=== PATIENT | male | born 2005 | race African-American/Black ===

== ENCOUNTER 2024-12-27 09:45 | Outpatient (RCR) | payer OTHER, SELFPAY ==
--- NOTE | 2024-12-12 14:26 | PT.OPEX ---
PT [place] Outpatient Eval PT [facility] Outpatient Eval Start: 12/12/24 10:00 Freq: Status: Active Protocol: Document 12/12/24 10:00 AUBREY (Rec: 12/12/24 14:23 [facility] [id number]) E-signed By Sugey Jaquez PT Physical Therapy Outpatient Evaluation Insurance Information Insurance Name Workman's Comp Insurance Information/Comments WORK COMP Medical Diagnosis LEFT SHOULDER RTC ARTHROPATHY Treating Diagnosis LEFT SHOULDER PAIN LEFT SHOULDER IMPINGEMENT Imaging Report Information N/A Referring MD ANGELES PAT, DO Subjective Subjective PATIENT REPORTS BLOCKING A WALKER WITH HIS SHOULDER/ARM FROM HITTING ANOTHER CLIENT AT THE [employer] HE WORKS FOR ON 09/28/24. HE TRIED TO LET HEAL ON IT'S OWN THINKING THAT THE PAIN WOULD GET BETTER BUT, ULTIMATELY, HE F/U WITH PHYSICIAN. SHE PRESCRIBED PO IBUPROFEN, INSTRUCTED HIM TO USE ICE AND RESTRICTED HIS LIFTING/PUSH/ PULL TO 50#. HE C/O LEFT UPPER ARM PAIN WHEN REACHING OUT TO SIDE APPROACHING AND >90 DEGREES W/O WEIGHT. HE REPORTS INTERMITTENTLY USING ICE AND IBUPROFEN NOTING A DECREASE IN PAIN WHEN DOES USE THEM. 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 Precautions Therapy Limitations/Systems Review Not Limited Objective Other/Pertinent Objective CERVICAL ROM : WNL SHOULDER AROM FLEX: WNL ABD:WNL *>90 IR:WNL ER: WNL NECK/SHOULDER MMT: SHRUG 5/5 FLEX 5/5 EXT 5/5 ABD 5-/5 * IR 5/5 ER 5/5 ELBOW:5/5 FLEX 5/5 EXT 5/5 SPECIAL TESTS: CERVICAL: SPURLING :UNREMARKABLE CERVICAL DISTRACTION: UNREMARKABLE NEURAL TENSION (MEDIAN/ULNAR/ RADIAL): NT BAKODY SIGN: NT CRLF: NT AJ: NT IMPINGEMENT: GREENE-MASSIEL: (+) NEER (+) CAR (-) PAINFUL ARC (+) TENDONITIS: SPEEDS (-) YERGASON'S (-) JOBES (EMPTYCAN) (+) FULL CAN (-) LIFT OFF (-) HORN BLOWER (+) DROP ARM (-) LABRAL TEAR/INSTABILITY/AC SCARF TEST (-) PAXIONO (-) APPREHENSION :(-) LUCERO'S : (-) JOINT MOBILITY/PALPATION : NORMAL ARTHROKINEMATICS, PAIN WITH PALPATION AT SUPRASPINATUS INSERTION/SUBDELTOID BURSA TX: SHOULDER SHRUG W/BKWD ROTATION X 15 PEC STRETCH 3 X 15SEC STDG TB ROW (BLUE) X 15 HOLD 3 SEC STDG TB ROW (BLUE) X 15 HOLD 3 SEC STDG TB ER (GREEN) X 15 SLOW AND STEADY Functional Test Performed & Score [id number] Assessment Assessment/Impression PATIENT IS A 19 YO REFERRED BY ANGELES PAT TO EVAL AND TREAT LEFT SHOULDER ARTHROPATHY. PATIENT DEMONSTRATES SIGNS AND SYMPTOMS CONSISTENT WITH SHOULDER IMPINGEMENT SYNDROME/ SUBDELTOID BURSITIS CONTRIBUTING TO THEIR FUNCTIONAL IMPAIRMENTS OF PAIN WITH LIFTING/REACHING OUT TO SIDE AND >90 DEGREES. PATIENT HAS NOTABLE OBJECTIVE FINDING INCLUDING (+) GREENE MASSIEL , NEERS, EMPTY CAN AND PAINFUL ARC WHICH ALL ARE CONTRIBUTING TO THE CLINICAL IMPRESSION. PATIENT IS A GOOD CANDIDATE FOR SKILLED PHYSICAL THERAPY TO ADDRESS AFOREMENTIONED DEFICITS ABOVE IN ORDER TO RETURN TO ASYMPTOMATIC STATUS AND RETURN TO UNRESTRICTED MVMTS IN ORDER TO RETURN TO FULL DUTY A PASTER OPERATOR W/O RESTRICTIONS . INTERVENTION IS NECESSARY BY WAY OF THERAPEUTIC EXERCISES, MANUAL THERAPY, NEUROMUSCULAR EDUCATION, AND STABILIZATION/ PROPRIOCEPTION. PLEASE REFER TO APPROPRIATE SECTION WITHIN THIS EVALUATION FOR COMPLETE LIST OF GOALS AND PLAN OF CARE . DISCHARGE PLAN AND CRITERIA IS FOR PATIENT TO ACHIEVE THE GOALS LISTED BELOW OR UNTIL MAX POTENTIAL MET. PATIENT VERBALIZED UNDERSTANDING AND AGREEABLE TO POC, FREQ, AND GOALS ESTABLISHED. Primary Functional Limitations LIFTING/REACHING AWAY FROM BODY, OVERHEAD, AND CARRYING Plan of Care Rehabilitation Potential Good Physical Therapy Goals IN 6-8 VISITS: 1. DECREASE SHOULDER PAIN TO < /2-3/10 WITH DAILY ACTIVITIES AND WITH THE PROGRESSION OF HIS/HER HEP OVER THE NEXT 4 WEEKS. 2. DEMONSTRATE PAIN FREE AROM OVER THE NEXT 4-6 WEEKS DURING DAILY ACTIVITIES WITHOUT FLARE UPS OF SYMPTOMS. 3. PATIENT WILL VERBALIZED UNDERSTANDING OF POSTURING AND BODY MECHANICS IT RELATES TO DECREASING STRESS, IMPROVED SHOULDER MECHANICS, AND DECREASED SYMPTOMS. 4.PATIENT WILL DEMONSTRATES IMPROVED STRENGTH TO FACILITATE RETURN TO DAILY ACTIVITIES WITH LESS SYMPTOMS AND DECREASED OPPORTUNITIES FOR FLARE UP OF PAIN 5. PATIENT WILL BE INDEPENDENT WITH HIS HEP WITHIN THE NEXT 6-8 WEEKS FOR PROGRESSION TWD ABOVE MENTION GOALS, CONTINUED MGMT OF SYMPTOMS, AND ONGOING SELF IMPROVEMENTS IN POSTURING/STRENGTH/ STABILIZATION. Coordination/Communication With Referral Source,Compliance Investigator ( [facility]) Treatment Plan/Direct Interventions Ice/Cold/Vasopneumatic,Joint Mobilization,Manual Therapy, Neuromuscular Re-ed,Self-Care/ Home Management,Therapeutic Activities,Therapeutic Exercises Frequency/Duration 1X/WK Patient Will Be Discharged From Therapy Completion of LTG(s), Independently Progressing Evaluation Billing Untimed Code Treatment Minutes 20 PT Eval No Charge No Complexity Low Certification Information Provider Signature Required Yes Provider Signature Shows Agreement With POC & Medical Necessity Physician NPI Number Write NPI# Here Physician Comment/Change : Physician Signature & Date Requested Please Sign/Date Here
== END 2025-02-08 10:01 | disposition home or self-care (01) ==
PROVIDERS: Visit Provider Family Medicine
DX: S46.002A Unspecified injury of muscle(s) and tendon(s) of the rotator cuff of left shoulder, initial encounter (principal); M25.512 Pain in left shoulder; M75.42 Impingement syndrome of left shoulder; Z51.89 Encounter for other specified aftercare
CPT/HCPCS: 97110; 97161

== ENCOUNTER 2025-03-22 09:24 | Outpatient (CLI) | payer OTHER, SELFPAY ==
--- NOTE | 2025-03-22 09:15 | CRLHL7_ITS ---
For Patients: As a result of the Century Cures Act, medical imaging exams and procedure reports are released immediately into your electronic medical record. You may view this report before your referring provider. If you have questions, please contact your health care provider. Indication: Left shoulder pain Comparison: 03/08/2025 Procedure : Informed consent was obtained. The site was marked. Time-out was performed. The skin of the left shoulder was cleansed with ChloraPrep. A sterile drape was placed. 8 cc of 1 percent lidocaine was administered for superficial anesthesia. Subsequently a 22 gauge spinal needle was introduced into the left shoulder joint under intermittent fluoroscopic guidance. Injection of 2 cc nonionic Omnipaque 240 contrast confirmed intra-articular location. Subsequently 11 cc of dilute gadolinium were injected. The needle was removed and hemostasis achieved with direct pressure. A dressing was placed. The patient tolerated the procedure well without immediate complication and was immediately sent to MRI for imaging. Total fluoroscopy time 18 seconds. Impression: Successful fluoroscopically guided left shoulder arthrogram for MRI. Dictated by Sergio Roque MD @ 03/22/2025 10:15:03 AM (Electronically Signed)
--- NOTE | 2025-03-22 10:15 | MR_ITS ---
[address] [address] Phone:?[phone] Fax:?[phone] Referring Physician Information: Pantera [address] [facility] [address] Phone:?[phone] Fax:?[phone] Patient:Fidencio Rausch D.O.B:?2005 Sex:?Male Phone:?[phone] [facility] MRN:?[id number] Exam Date:?03/22/2025 EXAM: MR ARTHROGRAM of the LEFT SHOULDER CLINICAL: Male, 19 years old, with left shoulder into upper arm pain. INDICATION: Evaluate for labral tear versus other shoulder internal derangement etiology. PRIOR SURGERY: None reported. PLAIN FILMS: 03/08/2025 radiographic series of the left shoulder. COMPARISONS: No prior MRIs available. TECHNICAL: Exam performed after fluoroscopically-guided and gadolinium contrast arthrography of the left glenohumeral joint, reported separately. Using a 1.5T MR scanner and a localizing shoulder surface coil: 3.0 mm?coronal obliques: PD, PDFS, T1FS 3.0 mm?sagittal obliques: PDFS, T2 3.0 mm?axials: PD, PDFS SEDATION: None. CONTRAST: None. IMPRESSION: 1. No defined labral tears. 2. Borderline slight abnormal subacromial bursal edema. 3. Mild narrowing of acromiohumeral distance. No inferior AC joint hypertrophy. 4. Mild narrowing of coracohumeral distance. 5. No biceps tendon pathology. 6. No glenohumeral chondromalacia/osteoarthritis. FINDINGS: Glenohumeral joint: Contrast: Contrast in the glenohumeral joint reflects successful arthrography. Ganglion cyst: None. Articular cartilage: Humeral head: Intact. Glenoid: Intact. Loose bodies: None demonstrable. Inferior glenohumeral ligament/axillary recess: Unremarkable. Labrum: No defined labral tears/pathology. Bones: Proximal humerus: Intact. No humeral Hill-Sachs or reverse Hill-Sachs lesion. Glenoid: Intact. No osseous Bankart lesion. Coracoacromial arch: Acromion morphology: Type I versus slight type II acromion without defined subacromial spur/enthesophyte. Os acromiale: None. Acromiohumeral space: Mildly narrowed at a minimum of 4 mm. Coracohumeral space: Mildly narrowed. 6 mm bony distance. 6 mm soft tissue distance. 24 mm coracoid overlap. Acromioclavicular joint: Joint: Unremarkable. Ligaments: Intact coracoclavicular ligaments. Bursae: Subacromial-subdeltoid: Borderline slender subacromial bursal edema. Subcoracoid: Unremarkable. Rotator cuff and muscles/tendons: Supraspinatus: Unremarkable. Infraspinatus: Unremarkable. Teres minor: Unremarkable. Subscapularis: Unremarkable. Deltoid: Unremarkable. Biceps tendon, long head: Intact without displacement. Axilla: Unremarkable. [facility] Electronically signed on 03/23/2025 5:08:00 AM by Steve Romero M.D.
== END 2025-03-22 09:25 | disposition home or self-care (01) ==
LOC: RAD 09:25
PROVIDERS: Visit Provider Physician Assistant Surgical
DX: M25.512 Pain in left shoulder (principal); S49.92XA Unspecified injury of left shoulder and upper arm, initial encounter
CPT/HCPCS: 23350; 73222; 77002; A9575; Q9966

== ENCOUNTER 2025-05-18 13:00 | Outpatient (RCR) | payer OTHER, SELFPAY ==
--- NOTE | 2025-04-04 11:40 | PT.OPEX ---
PT [place] Outpatient Eval PT [facility] Outpatient Eval Start: 04/04/25 07:21 Freq: Status: Active Protocol: Document 04/04/25 07:22 VMS (Rec: 04/04/25 11:14 VMS [id number]) E-signed By Jessy Cabrera Physical Therapy Outpatient Evaluation Insurance Information Insurance Name Deepti Santiago Medical Diagnosis Bursitis of L shoulder Treating Diagnosis L shoulder pain Limited ROM L shoulder Scapular dyskinesis Forward shoulder/head posture Imaging Report 03/22/2025: Information IMPRESSION (Shoulder MRI): 1. No defined labral tears. 2. Borderline slight abnormal subacromial bursal edema. 3. Mild narrowing of acromiohumeral distance. No inferior AC joint hypertrophy. 4. Mild narrowing of coracohumeral distance. 5. No biceps tendon pathology. 6. No glenohumeral chondromalacia/osteoarthritis. Referring MD Moris Riley PA-C Subjective Preferred Name Celso Subjective Apr 04 2025 : Willy is a 19 year M with complaints of L shoulder pain. Date of onset: 09/28/2024 Aggravating Factors: overhead movements, abduction Easing Factors: rest, ibuprofen prn, ice Method of Injury: got hit by walker at work Radiation: down arm Numbness / Tingling: down arm -infrequently will get N/ T Progression: gradually improving History of Shoulder Injuries: no history Work: 25 lb restriction at work. This restriction limits his ability to complete all aspects of his job such as assisting with lifts and patient transfers, as well as assisting patients with daily ADLs. Activity level: Does cardio now. Used to lift every day but now limits to 20 lbs or avoids lifting altogether. Review of Systems: History obtained from chart review, health history form, and the patient. I am only responding to those symptoms which are directly relevant to my consultation. Recommend the patient follow up with their primary/referring provider for other symptoms. 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 Able to correct if cued Palpation: TTP along lateral side of arm near humeral head. A/PROM: Flex: AROM: R: 163; L: 153 Ext: AROM: R: 53; L 53 deg Abd: AROM: R: 176: L: 151 IR: PROM: R: 30; L: 45 ER: PROM: R: 97; L: 105 Apley's IR: T6 R; T8 L Apley's ER: T6 bilat JPA: GH JPA: Stiff into inferior glide and posterior glide Strength: Shoulder: Flex: 5/5 bilat Abd: 4/5 bilat IR: 5/5 bilat ER: 4/5 bilat Muscle Length: Scalenes: (-) SCM: (-) Upper Trap: (+) on L Levator Scapulae: (+) on L Pec Minor: (+) bilat Pec Major: (+) bilat Lats: Not tested today Special Tests: General Laxity: Sulcus Sign (-) Anterior Instability: Load and Shift: (-) Biceps Involvement: Yergason's Test: (+) on L Labrum: Yergason's Test: (+) on L Impingement: Paula-Emmanuel Test: (-) Painful Arc Test: (+) starting at 115 deg --> 1/10 increases to 3/10 with further flexion Cross-Arm Adduction Test: (-) Supraspinatus: Empty Can Test: (-) Drop Arm Test: (-) Subscapularis: IR Lag Sign: (-) Infraspinatus: ER Lag at 0: (-) ER Lag at 90: (-) Teres Minor: Hornblower's Test: (-) AC Pathology: Cross Arm Adduction Test: (-) Cervical Radiculopathy: Cervical Rotation <60: (-) Spurling's Test: (-) Distraction: (-) Median ULTT: (+) on L Functional Test QuickDASH: 18.2/100 = 18.2% Performed & Score Assessment Assessment/ 2025-04-04: Initial Evaluation Assessment & PT Impression Impression: Mr. Rausch is a pleasant 19 year male presenting to outpatient physical therapy with primary complaint of L shoulder pain. Pertinent physical examination findings include limited ROM on the L into both abduction and flexion, forward shoulders/head posturing, (+) median nerve ULTT, scapular dyskinesis, stiffness with GH inferior/posterior glides, and upper trap/levator scapulae tightness. Functionally, the patient is limited in activities including carrying objects, overhead activities (including completing ADLs) and participation in work-related activities such as assisting with lifts and transfers. At this time, he is following a lifting restriction of 25 lbs, as he is unable to lift more weight due to pain in the L shoulder. He requires skilled physical therapy in order to address the above impairments, improve patients symptom status, and assist him in returning to his prior level of function. Barriers to Learning: None Primary Functional Fatiguing weakness, lifting, overhead activities, Limitations limited ability to work with arms away from body Plan of Care Rehabilitation Excellent Potential Physical Therapy STG: Goals 1. Patient will be independent with HEP by the end of 2 weeks. 2. Patient will demonstrate improved L shoulder flexion ROM to be equal to R side by the end of 2 weeks. LT. Patient will demonstrate adequate scapular retraction endurance in order to improve scapular coordination to decrease pain with UE movements by the end of 8 weeks. 2. Patient will demonstrate the ability to lift objects with proper scapular positioning with no greater than 2/10 pain in order to facilitate safe patient transfer techniques by the end of 8 weeks. 3. Patient will demonstrate L shoulder abduction ROM equal to R side to facilitate participation in work- related activities and completion of daily ADLs and IADLs by the end of 8 weeks. Coordination/ Referral Source Communication With Treatment Plan/ Joint Mobilization,Manual Therapy,Neuromuscular Re-ed, Direct Interventions Therapeutic Activities,Therapeutic Exercises Frequency/Duration 1x/week for 8 weeks Patient Will Be Completion of LTG(s),Independent w/HEP,Independently Discharged From Progressing Therapy Evaluation Billing Untimed Code 36 Treatment Minutes Complexity Low Certification Information Provider Signature Communication Only-No Signature Required Required
== END 2025-09-15 23:59 | disposition home or self-care (01) ==
PROVIDERS: Visit Provider Physician Assistant Surgical
DX: M75.52 Bursitis of left shoulder (principal); M25.512 Pain in left shoulder; G89.29 Other chronic pain; Z02.6 Encounter for examination for insurance purposes; Z51.89 Encounter for other specified aftercare
CPT/HCPCS: 97110; 97112; 97140; 97161